=== PATIENT | male | born 1975 | race Caucasian/White ===

== ENCOUNTER 2020-11-06 10:46 | Emergency (ER) | payer OTHER, SELFPAY ==
--- NOTE | ~2020-11-06 | XR_ITS ---
EXAMINATION: XR chest 1V portable DATE: 11/06/2020 14:14 INDICATION: Upper respiratory infection with sinus pressure and congestion. TECHNIQUE: frontal view of the chest was obtained. COMPARISON: Chest radiograph dated 07/04/2014 FINDINGS: The lungs remain clear with no focal airspace opacities, pulmonary edema, pleural effusion or pneumot horax. The cardiomediastinal silhouette is normal. Visualized bones and soft tissues are unremarkable . IMPRESSION: 1. Normal chest radiograph. Reviewed, dictated and finalized at location A. IMPRESSION: 1. Normal chest radiograph.
[2020-11-06 11:11] VITALS: BP 147/97; PULSE 85; RESP 16; TEMP 36.1; O2SAT 98
--- NOTE | 2020-11-06 14:38 | ED.GENADULT ---
HPI - General Adult General Chief complaint: Upper Respiratory Infection Stated complaint: SINUS INFECTION Time Seen by Provider: 11/06/20 13:48 Source: patient and RN notes reviewed Mode of arrival: ambulatory Limitations: no limitations History of Present Illness HPI narrative: Patient is a 45-year-old male who presents to emergency department for evaluation of sinus congestion rhinorrhea nonproductive cough for the last 2 days patient notes he is not vaccinated presented for concern of possible Covid exposure patient denies vomiting diarrhea chest pain does not appear distressed upon arrival Related Data Allergies Allergy/AdvReac Type Severity Reaction Status Date / Time meperidine Allergy Unknown SWELLING Verified 11/06/20 13:09 AND HIVES Review of Systems Review of Systems: All systems reviewed & are unremarkable except as noted in HPI and below PMFSH Social History Social History (Updated 11/06/20 @ 14:41 by Joesph Santamaria PA-C) Smoking status: Current every day smoker Gender identity (if verbalized by the patient): Male Exam Narrative: GENERAL: Well-appearing, well-nourished, and in no acute distress. HEAD: Normocephalic, atraumatic. EYES: PERRLA and EOMI. ENT: Nares clear, no rhinorrhea or epistaxis. Mucous membranes moist. CHEST: Clear to auscultation. No respiratory distress. No wheezes rales or rhonchi HEART: Regular rate and rhythm. No murmur heard. EXTREMITIES: Normal range of motion. No edema. SKIN: Warm, dry, no rash. NEURO: No focal deficits. Alert and oriented x3. Cranial nerves II through XII grossly intact PSYCH: Normal mood and affect. Course Course Emergency Course: Patient in the room hemodynamically stable ABCs and vital signs intact and stable patient will be tested for COVID-19 negative chest radiograph provided with reasons to return will self quarantine until he has received his results and will also follow with primary care for further evaluation Vital Signs Vital signs: Vital Signs Temperature 97 F L 11/06/20 11:11 Pulse Rate 85 11/06/20 11:11 Respiratory Rate 16 11/06/20 11:11 Blood Pressure 147/97 H 11/06/20 11:11 Pulse Oximetry 98 11/06/20 11:11 Temperature 97 F L 11/06/20 11:11 Pulse Rate 85 11/06/20 11:11 Respiratory Rate 16 11/06/20 11:11 Blood Pressure 147/97 H 11/06/20 11:11 Pulse Oximetry 98 11/06/20 11:11 Medical Decision Making Vital Signs Vital Signs: Vital Signs Temperature 97 F L 11/06/20 11:11 Pulse Rate 85 11/06/20 11:11 Respiratory Rate 16 11/06/20 11:11 Blood Pressure 147/97 H 11/06/20 11:11 Pulse Oximetry 98 11/06/20 11:11 Temperature 97 F L 11/06/20 11:11 Pulse Rate 85 11/06/20 11:11 Respiratory Rate 16 11/06/20 11:11 Blood Pressure 147/97 H 11/06/20 11:11 Pulse Oximetry 98 11/06/20 11:11 Imaging Data Radiologist's impression: ITS Impressions Chest X-Ray 11/06/20 14:17 IMPRESSION: 1. Normal chest radiograph. Discharge Plan Discharge Clinical Impression: Upper respiratory infection Patient Disposition: Home, Self-Care Condition: Stable Instructions: Antibiotic Form, Upper Respiratory Infection (DC) Additional Instructions: Follow up with your primary care provider within 1-2 days to set up for reevaluation and to obtain your COVID-19 results. Go to ER for shortness of breath, difficulty breathing, chest pain, fever/chills, weakness, nauseau/vomitting, etc. or any other concerns. Self quarantine until you have received your COVID-19 results Take any prescribed medications as directed. Stay well-hydrated If you do not have a drug allergy to tylenol or motrin and can tolerate it then take tylenol or motrin as needed for discomfort/pain. Prescriptions: New famotidine [Pepcid] 20 mg tablet 20 mg PO BID Qty: 14 RF: 0 ibuprofen [IBU] 600 mg tablet 600 mg PO QID PRN (Reason: fever or pain) Qty: 7 RF: 0 albuterol sulfate
[2020-11-06 15:02] VITALS: BP 158/90; PULSE 80; RESP 18
== END 2020-11-06 15:03 | disposition home or self-care (01) ==
PROVIDERS: Emergency Provider Emergency Medicine
DX: J06.9 Acute upper respiratory infection, unspecified (principal); F17.210 Nicotine dependence, cigarettes, uncomplicated; Z20.822 Contact with and (suspected) exposure to COVID-19
CPT/HCPCS: 71045; 99283

== ENCOUNTER 2022-09-05 10:40 | Emergency (ER) | payer OTHER, SELFPAY ==
--- NOTE | ~2022-09-05 | XR_ITS ---
EXAMINATION: XR hip RT 2V w AP pelvis INDICATION: Right hip pain TECHNIQUE: AP view the pelvis and two views of the right hip are obtained. COMPARISON: 06/25/2016 FINDINGS: Bone alignment is normal. There is no fracture. There is moderate to severe osteoarthritis at the superolateral aspect of the right hip with interval worsening. IMPRESSION: 1. Moderate to severe right hip osteoarthritis with interval worsening. Reviewed, dictated and finalized at location A.
[2022-09-05 10:42] VITALS: BP 147/106; PULSE 84; RESP 18; TEMP 36.5; O2SAT 98
--- NOTE | 2022-09-05 12:17 | ED.EXTPRO ---
HPI - Extremity Problem General Chief complaint: Extremity Problem,Nontraumatic Stated complaint: Right hip pain Time Seen by Provider: 09/05/22 12:03 History of Present Illness HPI Narrative: Patient is a 47-year-old male with a history of psoriatic arthritis presenting with hip pain. Patient states that he injured his right hip several years ago and he does have intermittent pain. States that over the last several weeks it has been increasing in frequency. States that he was fishing yesterday and when he was standing on uneven ground he heard crunching sounds in his right hip and he has had severe pain since then. States that he has taken ibuprofen with some improvement. He denies numbness or weakness. He denies trauma. Denies further complaints. Related Data Allergies Allergy/AdvReac Type Severity Reaction Status Date / Time meperidine Allergy Unknown SWELLING Verified 09/05/22 10:41 AND HIVES Review of Systems Review of Systems: All systems reviewed & are unremarkable except as noted in HPI and below PMFSH Social History Social History Smoking status: Current every day smoker Gender identity (if verbalized by the patient): Male Exam Narrative: GENERAL: Well-appearing, well-nourished, and in no acute distress. HEAD: Normocephalic, atraumatic. EYES: PERRLA and EOMI. ENT: Nares clear, no rhinorrhea or epistaxis. Mucous membranes moist. NECK: Supple. CHEST: No respiratory distress. HEART: Regular rate and rhythm. ABDOMEN: Soft, nontender, nondistended EXTREMITIES: Normal range of motion. + Mild tenderness over lateral right hip SKIN: Warm, dry, + multiple psoriatic plaques on bilateral lower extremities NEURO: No focal deficits. Alert and oriented x3. PSYCH: Normal mood and affect. Course Vital Signs Vital signs: Vital Signs Temperature 97.7 F 09/05/22 10:42 Pulse Rate 84 09/05/22 10:42 Respiratory Rate 18 09/05/22 10:42 Blood Pressure 147/106 H 09/05/22 10:42 Pulse Oximetry 98 09/05/22 10:42 Oxygen Delivery Room Air 09/05/22 10:42 Temperature 97.7 F 09/05/22 10:42 Pulse Rate 85 09/05/22 14:23 Respiratory Rate 18 09/05/22 10:42 Blood Pressure 146/94 H 09/05/22 14:23 Pulse Oximetry 99 09/05/22 14:23 Oxygen Delivery Room Air 09/05/22 10:42 MDM - Extremity (Nontraumatic) MDM Narrative Medical decision making narrative: Patient is a 47-year-old male presenting with right hip pain. Vitals within normal limits. Patient is well-appearing and in no acute distress. Exam is remarkable for the above. Plan for Tylenol and x-rays. X-ray reveals worsening moderate to severe osteoarthritis involving the right hip. Discussed the findings with the patient. Advise close follow-up with orthopedic surgery. Advised ibuprofen and Tylenol for pain control. Patient states that he is also working on getting a new PCP. Appropriate return precautions given. Patient voiced understanding and is agreeable with plan. Discharged in stable condition. Differential Diagnosis Differential diagnosis: Likely other (arthritis, hip fx, hip pain) Medical Records Attestation: I reviewed the patient's medical records. Imaging Data Radiologist's impression: ITS Impressions Hip/Pelvis X-Ray 09/05/22 12:48 IMPRESSION: 1. Moderate to severe right hip osteoarthritis with interval worsening. Critical Care Time Critical Care Time Critical Care Time: No Discharge Plan Discharge Clinical Impression: Arthritis of right hip Patient Disposition: Home, Self-Care Condition: Stable Instructions: Antibiotic Form, Hip Pain (ED) Additional Instructions: Your x-rays today show osteoarthritis involving your right hip. Please follow-up closely with orthopedic surgery as well as your new PCP. We recommend ibuprofen and Tylenol for pain control. If your symptoms suddenly worsen, you develop numbness or w
[2022-09-05] MEDS: ACETAMINOPHEN 500 MG TABLET 1000 MG PO (12:31)
[2022-09-05 14:23] VITALS: BP 146/94; PULSE 85; O2SAT 99
== END 2022-09-05 14:25 | disposition home or self-care (01) ==
PROVIDERS: Emergency Provider Emergency Medicine
DX: M16.11 Unilateral primary osteoarthritis, right hip (principal); F17.200 Nicotine dependence, unspecified, uncomplicated
CPT/HCPCS: 73502; 99283; A9270